=== PATIENT | male | born 1965 | race Caucasian/White ===

== ENCOUNTER 2018-06-16 08:05 | Emergency (ER) | payer OTHER ==
--- NOTE | 2018-06-16 08:30 | EDM.PDOC ---
ED HPI GENERAL MEDICAL PROBLEM - General Chief Complaint: General Stated Complaint: LEFT SHOULDER PAIN Time Seen by Provider: 06/16/18 08:14 Source of Information: Reports: Patient History Limitations: Reports: No Limitations - History of Present Illness INITIAL COMMENTS - FREE TEXT/NARRATIVE: Patient reports to the ED with complaints of left shoulder pain. 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 This happened at work. He denies any headache, chest pain, neck pain. No LOC. Reduced ROM to the left shoulder. Painful more while lifting up his shoulder. Denies much pain while internally or externally rotating. Also denies pain while abducting or adducting. No numbness or tingling to the extremity. Onset: Today, Sudden Duration: Intermittent Location: Reports: Upper Extremity, Left Quality: Reports: Sharp Severity: Mild Worsens with: Reports: Movement Associated Symptoms: Reports: No Other Symptoms Left Shoulder Pain Score (Numeric/FACES): 8 - Related Data Allergies Allergy/AdvReac Type Severity Reaction Status Date / Time No Known Allergies Allergy Verified 06/16/18 08:26 Home Meds: Home Meds Fish Oil/Truro-3 Fatty Acids [Fish Oil 1,000 MG] 2,000 mg DAILY 06/16/18 [ History] atorvaSTATin [Lipitor] 20 mg DAILY 06/16/18 [History] ED ROS GENERAL - Review of Systems Review Of Systems: See Below Constitutional: Reports: No Symptoms HEENT: Reports: No Symptoms Respiratory: Reports: No Symptoms Cardiovascular: Reports: No Symptoms Endocrine: Reports: No Symptoms GI/Abdominal: Reports: No Symptoms : Reports: No Symptoms Musculoskeletal: Reports: Shoulder Pain (left side) Skin: Reports: No Symptoms Neurological: Reports: No Symptoms Psychiatric: Reports: No Symptoms Hematologic/Lymphatic: Reports: No Symptoms Immunologic: Reports: No Symptoms ED EXAM, GENERAL - Physical Exam Exam: See Below Exam Limited By: No Limitations General Appearance: Alert, WD/WN, No Apparent Distress Eye Exam: Bilateral Eye: EOMI, Normal Inspection, PERRL Ears: Normal TMs Nose: Normal Inspection, Normal Mucosa, No Blood Throat/Mouth: Normal Inspection, Normal Lips, Normal Teeth, Normal Gums, Normal Oropharynx, Normal Voice, No Airway Compromise Head: Atraumatic, Normocephalic Neck: Normal Inspection, Supple, Non-Tender, Full Range of Motion Respiratory/Chest: No Respiratory Distress, Lungs Clear, Normal Breath Sounds, No Accessory Muscle Use, Chest Non-Tender Cardiovascular: Normal Peripheral Pulses, Regular Rate, Rhythm, No Edema, No Gallop, No JVD, No Murmur, No Rub Peripheral Pulses: 2+: Radial (L), Radial (R) GI/Abdominal: Normal Bowel Sounds, Soft, Non-Tender, No Organomegaly, No Distention, No Abnormal Bruit, No Mass Extremities: Limited Range of Motion (left shoulder also has a minimal notch to superior left clavicle differing from the right) Neurological: Alert, Oriented, CN II-XII Intact, Normal Cognition, Normal Gait, Normal Reflexes, No Motor/Sensory Deficits Psychiatric: Normal Affect, Normal Mood Skin Exam: Warm, Dry, Intact, Normal Color, No Rash Lymphatic: No Adenopathy Course - Vital Signs Last Recorded V/S: Last Vital Signs Temp 36.8 C 06/16/18 08:05 Pulse 82 06/16/18 08:05 Resp 18 06/16/18 08:05 BP 141/79 H 06/16/18 08:05 Pulse Ox 98 06/16/18 08:05 - Orders/Labs/Meds Orders: Active Orders 24 hr Category Date Time Status Chest 2V [CR] Stat Exams 06/16/18 08:18 Taken Shoulder Comp Bi [CR] Stat Exams 06/16/18 08:18 Taken Departure - Departure Time of Disposition: 09:22 Disposition: Home, Self-Care 01 Condition: Good Clinical Impression: Left shoulder pain - Discharge Information *PRESCRIPTION DRUG MONITORING PROGRAM REVIEWED*: No *COPY OF PRESCRIPTION DRUG MONITORING REPORT IN PATIENT HERBIE: No Instructions: Shoulder Range of Motion Exercises, Shoulder Pain, [id number], Cryotherapy, [id number] Referrals: PCP,None [Primary Care Provider] - Forms: ED Department Discharge Additional Instructions: Plan 1. X-rays of shoulder and chest are negative for any fractures or shelbi/ pneumothorax. 2. Ice, rest, elevate your shoulder. 3. If not better in 5-7 days, follow up with your primary doctor to schedule an MRI for further testing of the soft tissue including ligaments and cartilage. 4. May alternate ibuprofen and tylenol for pain and discomfort. 5. Please call if you have any additional questions or concerns. - Problem List & Annotations (1) Left shoulder pain SNOMED Code(s): 33711121, 17910346 Code(s): M25.512 - PAIN IN LEFT SHOULDER Status: Acute Priority: Low Current Visit: Yes Qualifiers: Chronicity: acute Qualified Code(s): M25.512 - Pain in left shoulder - Problem List Review Problem List Initiated/Reviewed/Updated: Yes - My Orders Last 24 Hours: My Active Orders 06/16/18 08:18 Chest 2V [CR] Stat Shoulder Comp Bi [CR] Stat - Assessment/Plan Last 24 Hours: My Active Orders 06/16/18 08:18 Chest 2V [CR] Stat Shoulder Comp Bi [CR] Stat Assessment:: left shoulder pain Plan: Plan 1. X-rays of shoulder and chest are negative for any fractures or shelbi/ pneumothorax. 2. Ice, rest, elevate your shoulder. 3. If not better in 5-7 days, follow up with your primary doctor to schedule an MRI for further testing of the soft tissue including ligaments and cartilage. 4. May alternate ibuprofen and tylenol for pain and discomfort. 5. Please call if you have any additional questions or concerns.
--- NOTE | 2018-06-17 08:02 | CR ---
[id number] RAD/RAD Chest PA And Lateral EXAM: RAD Chest PA And Lateral INDICATION: FALL FROM PLATFORM. COMPARISON: None. DISCUSSION: Cardiomediastinal silhouette is normal in size and contour. No infiltrate, effusion, pneumothorax, or edema. No fractures identified. IMPRESSION: No acute cardiopulmonary abnormality. Hiram Rodriguez DO 06/16/18 0913 Thank you for allowing us to participate in the care of your patient.
--- NOTE | 2018-06-17 08:02 | CR ---
[id number] RAD/RAD Shoulder Left 2V Min EXAM: 3 VIEWS LEFT SHOULDER. INDICATION: FALL FROM PLATFORM. COMPARISON: None. DISCUSSION: No fracture, dislocation or other acute osseous abnormality. Mild to moderate degenerative changes of the left acromioclavicular joint. IMPRESSION: 1. No acute osseous abnormalities. Chronic changes as above. Hiram Rodriguez DO 06/16/18 0915 Thank you for allowing us to participate in the care of your patient.
== END 2018-06-16 09:30 | disposition home or self-care (01) ==
LOC: VM.ED 08:05
DX: M25.512 Pain in left shoulder (principal); Z79.899 Other long term (current) drug therapy; W19.XXXA Unspecified fall, initial encounter
CPT/HCPCS: 71046; 73030-50; 99283

== ENCOUNTER 2023-09-24 10:44 | Emergency (ER) | payer OTHER, BC ==
[2023-09-24] MEDS: Albuterol/Ipratropium 3.0-0.5 MG/3 ML Neb Soln NEB ONE (11:28)
[2023-09-24 11:44] LABS: BASOPHILS PERCENT AUTO 0.3 % (0.2-1.2); EOSINOPHILS ABSOLUTE AUTO 0.1 x10^3/uL (0.0-0.5); EOSINOPHILS PERCENT AUTO 1.5 % (0.0-4.0); HEMATOCRIT 47.8 % (40.0-52.0); HEMOGLOBIN 16.7 g/dL (14.0-18.0); IMMATURE GRAN ABSOLUTE AUTO 0.04 x10^3/uL (0.00-0.07); LYMPHOCYTES ABSOLUTE AUTO 0.9 x10^3/uL (1.0-4.8); LYMPHOCYTES PERCENT AUTO 11.7 % (25.0-50.0); MEAN CORPUSCULAR HEMOGLOBIN 30.1 pg (26.0-32.0); MEAN CORPUSCULAR HGB CONC 34.9 g/dL (32.0-36.0); MEAN CORPUSCULAR VOLUME 86.3 fL (78.0-93.0); MONOCYTES ABSOLUTE AUTO 1.1 x10^3/uL (0.0-0.8); MONOCYTES PERCENT AUTO 14.1 % (2.0-11.0); NEUTROPHILS ABSOLUTE AUTO 5.7 x10^3/uL (1.8-7.7); NEUTROPHILS PERCENT AUTO 71.9 % (50.0-80.0); PLATELET COUNT,PLT 208 x10^3/uL (130-400); RED BLOOD CELL COUNT 5.54 x10^6/uL (4.5-6.0); WHITE BLOOD CELL COUNT,WBC 7.9 x10^3/uL (4.0-10.0)
[2023-09-24 12:04] LABS: BLOOD UREA NITROGEN,BUN 23 mg/dL (7-18); CALCIUM 9.2 mg/dL (8.5-10.1); CARBON DIOXIDE,CO2 23 mmol/L (21-32); CHLORIDE,CL 104 mmol/L (98-107); GLUCOSE RANDOM 102 mg/dL (70-99); SODIUM,NA 139 mmol/L (136-145)
[2023-09-24 12:05] LABS: ESTIMATED GFR 88 mL/min (>=60)
[2023-09-24 12:16] LABS: CORONAVIRUS COVID-19 NAA NEGATIVE (NEGATIVE); INFLUENZA A NAA NEGATIVE (NEGATIVE); INFLUENZA B NAA NEGATIVE (NEGATIVE); RESPIRATORY SYNCYTIAL VIR NAA NEGATIVE (NEGATIVE)
== END 2023-09-24 12:50 | disposition home or self-care (01) ==
LOC: VM.ED 10:44
DX: J45.909 Unspecified asthma, uncomplicated (principal); I48.91 Unspecified atrial fibrillation; E78.00 Pure hypercholesterolemia, unspecified; Z79.899 Other long term (current) drug therapy
CPT/HCPCS: 0241U; 36415; 71046; 80048; 84484; 85025; 85379; 93005; 93010; 94640; 99284; 99285; J7620-GY